=== PATIENT | male | born 1960 | race Two or more races ===

== ENCOUNTER → 2021-08-21 | Outpatient (CLI) | payer MEDICAID ==
[~2021-08-21] VITALS: Ht 180.3 cm; Wt 72.6 kg
== END | disposition home or self-care (01) ==
LOC: Rad HDHVI 14:00
PROVIDERS: ATTEND Internal Medicine Cardiovascular Disease
DX: R00.2 Palpitations (principal)
CPT/HCPCS: 78452; 93017; 96374; A9500

== ENCOUNTER → 2022-09-23 | Outpatient (CLI) | payer MEDICAID | END | disposition home or self-care (01) | LOC: Rad HDHVI 14:02 | PROVIDERS: ATTEND Internal Medicine Cardiovascular Disease | DX: I08.1 Rheumatic disorders of both mitral and tricuspid valves (principal); R00.2 Palpitations; I47.20 Ventricular tachycardia, unspecified | CPT/HCPCS: 93306 ==

== ENCOUNTER 2025-01-13 07:42 | Day surgery (SDC) | payer OTHER, MEDICAID ==
[2025-01-08 10:48] LABS: INR 1.12 (0.9-1.15); Partial Thromboplastin Time 27.1 SEC (24.5-34.5); Prothrombin Time 11.7 sec (9.3-11.8)
[2025-01-08 11:04] LABS: Alanine Aminotransferase 32 U/L (7-40); Albumin 4.5 g/dL (3.2-4.8); Alkaline Phosphatase 93 U/L (46-116); Anion Gap 9 (5-15); BUN/Creatinine Ratio 7.4 (10.0-20.0); Bilirubin, Total 0.8 mg/dL (0.2-1.0); Calcium 9.3 mg/dL (8.7-10.4); Carbon Dioxide 29 mmol/L (20-31); Chloride 104 mmol/L (98-107); Glucose 95 mg/dL (74-106); Potassium 4.4 mmol/L (3.5-5.1); Sodium 142 mmol/L (136-145); Total Protein 7.5 g/dL (5.7-8.2)
[2025-01-08 11:12] LABS: Blood Urea Nitrogen 7 mg/dL (9-23)
[2025-01-08 11:13] LABS: Hematocrit 46.1 % (41.0-53.0); Hemoglobin 15.2 g/dL (13.5-17.5); Mean Corpuscular Hemoglobin 28.2 pg (28.0-32.0); Mean Corpuscular Volume 85.7 fL (80.0-100.0); Nucleated Red Blood Cells % 0.0 %
[~2025-01-13] VITALS: Ht 180.3 cm; Wt 72.6 kg
[~2025-01-13 07:42] MED LIST: ASPI81CH59 PO; MULT-777 OR
[2025-01-13] MEDS ORDERED: fentaNYL CITRATE 100 MCG/2 ML VL ONE (08:19)
--- NOTE | 2025-01-13 09:47 | DVHNC2 ---
Procedure - DATE OF SERVICE: 2024 PROCEDURE PERFORMED BY: Real Vasquez MD REFERRING PROVIDER: Redd Aragon MD PROCEDURE PERFORMED: 1. COLONOSCOPY WITH MODERATE SEDATION 2. COLONOSCOPY WITH COLD BIOPSY POLYPECTOMY PREPROCEDURE DIAGNOSIS: 1. Colon cancer screening POSTPROCEDURE DIAGNOSIS: 1. 3 mm sigmoid colon polyp 2. Internal hemorrhoids INDICATION FOR PROCEDURE: The patient is a 64-year-old female who presents for outpatient colonoscopy for screening. MEDICATIONS USED: 6 mg of Versed IV and 100 mcg of fentanyl IV DETAILS OF THE PROCEDURE: Informed consent was obtained after risks, benefits, and alternatives, were discussed at length with the patient, the patient gave consent to the procedure as well as a medication used for sedation. She was brought into the GI suite and placed in the left lateral decubitus position. Digital rectal exam showed internal and external hemorrhoids. An Olympus variable torsion pediatric colonoscope was inserted into the rectum and advanced to the cecum. The cecum was identified by the ileocecal valve and appendiceal orifice. The prep was good with only small amounts of stool. There was a 3 mm polyp in the sigmoid colon removed completely with cold biopsy polypectomy. There were no large polyps masses strictures or arteriovenous malformation seen. More than 6 minutes withdrawal time was noted. Retroflexion showed internal hemorrhoids. The patient tolerated the procedure well. START TIME: 936 CECUM TIME: 937 END TIME: 944 [place] BOWEL PREP SCORE:7 IMPRESSION: 1. Internal hemorrhoids and one small colon polyp RECOMMENDATIONS: 1. Repeat colonoscopy in five years unless otherwise indicated by symptoms or family history or pathology 2. High-fiber diet 3. Follow up in GI clinic for procedure and pathology results 4. Follow up with primary care physician I would like to thank Dr. Aragon for this referral REAL VASQUEZ MD Jan 13, 2025 09:47
[2025-01-13 09:48] VITALS: TEMP 98.1
[2025-01-13 10:15] VITALS: BP 129/85; PULSE 66; RESP 12; O2SAT 98
== END 2025-01-13 10:30 | disposition home or self-care (01) ==
LOC: SUR 07:42
PROVIDERS: ATTEND Specialist
DX: Z12.11 Encounter for screening for malignant neoplasm of colon (principal); K63.5 Polyp of colon; K64.8 Other hemorrhoids; K64.4 Residual hemorrhoidal skin tags
CPT/HCPCS: 36415; 45380; 80053; 85025; 85610; 85730; 88305; J3010